=== PATIENT | female | born 1975 | race Caucasian/White ===

== ENCOUNTER 2022-04-22 10:41 | Emergency (ER) | payer BC ==
[~2022-04-22] VITALS: Ht 149.9 cm; Wt 90.7 kg
[2022-04-22 10:50] VITALS: BP_SYST 188
--- NOTE | 2022-04-22 10:50 | NUR ---
Patient triaged and placed in waiting room. VSS and patient appears in no acute distress at this time. Accompanied by SELF, awaiting available bed, and MD notified of need for MSE.
--- NOTE | 2022-04-22 15:00 | NUR ---
Pt bib from home, CC left eye redness. Pt c/o left cranial pressure. Pt states history of dryness in the eyes. Pt denies sticky drainage. Pt states onset 1 day ago.
--- NOTE | 2022-04-22 15:10 | NUR ---
ER at bedside examining patient.
--- NOTE | 2022-04-22 15:10 | NUR ---
Aris piedra in [facility] - 04/22/22 at 1613 by SDNURMICHAEL SNOW Unger at bedside examining patient.
--- NOTE | 2022-04-22 15:56 | NUR ---
Patient given written and verbal discharge instructions and verbalizes understanding. ER MD discussed with patient the results and treatment provided. Patient in stable condition. ID arm band removed. Opportunity for questions provided and answered. Medication side effect fact sheet provided.
[2022-04-22 15:57] VITALS: BP_SYST 148
== END 2022-04-22 15:56 | disposition home or self-care (01) ==
LOC: SED 10:41
DX: H11.32 Conjunctival hemorrhage, left eye (principal); R51.9 Headache, unspecified; Z88.6 Allergy status to analgesic agent; Z79.899 Other long term (current) drug therapy
CPT/HCPCS: 99281